=== PATIENT | female | born 2000 | race African-American/Black ===

== ENCOUNTER 2024-04-07 13:10 | Emergency (ER) | payer OTHER ==
[2024-04-07 19:26] LABS: MAGNESIUM LEVEL 1.7 MG/DL (1.8-2.4)
[2024-04-07 19:30] LABS: FREE T4 1.24 NG/DL (0.89-1.76); THYROID STIMULATING HORMONE 1.813 uIU/ML (0.55-4.78)
[2024-04-07 19:52] LABS: AMPHETAMINES LEVEL URINE NEGATIVE (NEGATIVE); BARBITURATES URINE NEGATIVE (NEGATIVE); BENZODIAZEPINES URINE NEGATIVE (NEGATIVE); COCAINE METABOLITE URINE NEGATIVE (NEGATIVE); METHADONE URINE NEGATIVE (NEGATIVE)
[2024-04-07 19:53] LABS: CANNABINOIDS URINE NEGATIVE (NEGATIVE); OPIATES URINE NEGATIVE (NEGATIVE); PHENCYCLIDINE URINE NEGATIVE (NEGATIVE)
[2024-04-07] MEDS ORDERED: HOLTER MONITOR XX (19:59)
[2024-04-07 20:14] VITALS: BP 125/77; TEMP 98; O2SAT 100
[2024-04-07] MEDS: MAGNESIUM OXIDE 400MG TAB (MAG-OX) PO ONE (20:32)
== END 2024-04-07 20:35 | disposition home or self-care (01) ==
LOC: M ED 13:10
DX: R00.2 Palpitations (principal); E83.42 Hypomagnesemia; F41.9 Anxiety disorder, unspecified; Z88.1 Allergy status to other antibiotic agents

== ENCOUNTER → 2024-04-08 | Outpatient (CLI) | payer OTHER ==
[~2024-04-08] MED LIST: HOLTER MONITOR XX
== END ==
LOC: M EKG 14:15
PROVIDERS: ATTEND Registered Nurse
DX: R00.2 Palpitations (principal)